=== PATIENT | female | born 1950 | race Caucasian/White ===

== ENCOUNTER 2018-08-31 12:06 | Emergency (ER) | payer MEDICARE, OTHER ==
[2018-08-31] MEDS ORDERED: Lidocaine 2% 5 ML SDV INFILT ONE (12:07)
[2018-08-31] MEDS ORDERED: Diphtheria,Pertussis(Acell),Tetanus Vaccine 0.5 ML SDV IM ONE (12:33)
--- NOTE | 2018-08-31 12:55 | EDM.PDOC ---
ED HPI GENERAL MEDICAL PROBLEM - General Chief Complaint: Laceration Stated Complaint: FINGER LACERATION LEFT HAND Time Seen by Provider: 08/31/18 12:06 Source of Information: Reports: Patient, Family History Limitations: Reports: No Limitations - History of Present Illness INITIAL COMMENTS - FREE TEXT/NARRATIVE: 67 y.o.w.f came with her to the ed shortly after cut her left finger while cutting in a potato with a ne knife. Wound was bleeding immediately. Pt noticed a piece of skin hanging off the finger tip. No N/V/D. Pt denied any other acute medical issues. BP 135/81 RR 20 Pulse ox 98% on RA temp 37.1 pulse 81 Onset Date: 08/31/18 Onset Time: 12:10 Duration: Minutes: Location: Reports: Upper Extremity, Left (left ring finger) Quality: Reports: Burning, Dull Severity: Mild Improves with: Reports: Rest Worsens with: Reports: Movement Context: Reports: Trauma Associated Symptoms: Reports: No Other Symptoms finger laceration Pain Score (Numeric/FACES): 5 - Related Data Allergies Allergy/AdvReac Type Severity Reaction Status Date / Time bupropion [From Wellbutrin] Allergy Intermediate Hives Verified 08/31/18 12:26 Sulfa (Sulfonamide Allergy Intermediate Hives Verified 08/31/18 12:26 Antibiotics) bacitracin Allergy Unknown Swelling Verified 08/31/18 12:26 [From Neosporin ([id number])] neomycin Allergy Unknown Swelling Verified 08/31/18 12:26 [From Neosporin ([id number])] polymyxin B Allergy Unknown Swelling Verified 08/31/18 12:26 [From Neosporin ([id number])] SEAFOOD Allergy UNKNOWN Uncoded 08/31/18 12:26 Home Meds: Home Meds Albuterol Sulfate [Ventolin Hfa] 8 gm IH Q4HR PRN 09/23/16 [History] Calcium Carb & Citrate/Vit D3 [Citracal + D ER] 1 each PO BID 09/23/16 [History] Citalopram Hydrobromide [Celexa] 20 mg PO DAILY 09/23/16 [History] Fluticasone/Salmeterol [Advair 250-50 Diskus] 1 each IH BID PRN 09/23/16 [ History] Lansoprazole [Prevacid] 30 mg PO BIDAC 09/23/16 [History] traZODone 50 mg PO BEDTIME 09/23/16 [History] Amoxicillin/Potassium Clav [Augmentin 875-125 Tablet] 1 each PO BID #20 tablet 08/31/18 [Rx] Simvastatin 80 mg PO DAILY 08/31/18 [History] Past Medical History Cardiovascular History: Reports: High Cholesterol Respiratory History: Reports: Asthma, Other (See Below) Other Respiratory History: SNORING Gastrointestinal History: Reports: Colon Polyp, GERD, Irritable Bowel Syndrome Musculoskeletal History: Reports: Arthritis, Other (See Below) Other Musculoskeletal History: TMJ SYNDROME, DYSTHYMIC DISORDER, SPINAL STENOSIS OF LUMBAR REGION Psychiatric History: Reports: Depression Dermatologic History: Reports: Other (See Below) Other Dermatologic History: SEBORRHEIC KERATOSIS, ACTINIC KERATOSIS, DERMATOCHALASIS - Past Surgical History HEENT Surgical History: Reports: Adenoidectomy, Eye Surgery, Tonsillectomy Social & Family History - Tobacco Use Smoking Status *Q: Never Smoker - Caffeine Use Caffeine Use: Reports: Coffee - Recreational Drug Use Recreational Drug Use: No ED ROS GENERAL - Review of Systems Review Of Systems: See Below Constitutional: Reports: No Symptoms HEENT: Reports: No Symptoms Respiratory: Reports: No Symptoms Cardiovascular: Reports: No Symptoms Endocrine: Reports: No Symptoms GI/Abdominal: Reports: No Symptoms : Reports: No Symptoms Musculoskeletal: Reports: No Symptoms Skin: Reports: Wound (left ring finger) Neurological: Reports: No Symptoms Psychiatric: Reports: No Symptoms Hematologic/Lymphatic: Reports: No Symptoms Immunologic: Reports: No Symptoms ED EXAM, SKIN/RASH Exam: See Below Exam Limited By: No Limitations General Appearance: Alert, WD/WN, Mild Distress Eye Exam: Bilateral Eye: Normal Inspection Ears: Normal External Exam Nose: Normal Inspection Throat/Mouth: Normal Inspection, Normal Lips, Normal Voice, No Airway Compromise Head: Atraumatic, Normocephalic Neck: Normal Inspection, Supple, Non-Tender, Full Range of Motion Respiratory/Chest: No Respiratory Distress, Lungs Clear, Normal Breath Sounds, No Accessory Muscle Use, Chest Non-Tender Cardiovascular: Normal Peripheral Pulses, Regular Rate, Rhythm, No Edema, No JVD , No Murmur, No Rub Peripheral Pulses: 1+: Brachial (R) GI/Abdominal: Normal Bowel Sounds, Soft, Non-Tender (Female) Exam: Deferred Rectal (Female) Exam: Deferred Back Exam: Normal Inspection, Full Range of Motion Extremities: Normal Inspection, Normal Range of Motion, Non-Tender, No Pedal Edema, Normal Capillary Refill Neurological: Alert, Oriented, CN II-XII Intact, Normal Cognition, Normal Gait, Normal Reflexes, No Motor/Sensory Deficits Psychiatric: Normal Affect, Normal Mood Skin: Warm, Dry, Wound/Incision (left ringfinger tip ) Location, Skin: Upper Extremity, Left (LAC finger tip of left ringfinger) Lymphatic: No Adenopathy ED SKIN PROCEDURES - Laceration/Wound Repair Left Distal Digit - 4th (Ring) Lac/Wound length In cm: 1.5 Appearance: Irregular, Clean Distal NVT: Neuro & Vascular Intact, No Tendon Injury Anesthetic Type: Digital Local Anesthesia - Lidocaine (Xylocaine): 2% Plain Local Anesthetic Volume: 3cc Skin Prep: Providone-Iodine (Betadine) Saline Irrigation (cc's): 4 Exploration/Debridement/Repair: Wound Explored, In a Bloodless Field, Explored to Base Suture Size: 4-0 # of Sutures: 4 Suture Type: Interrupted, Other (ethilon) Sterile Dressing Applied: Nurse Tetanus Status Addressed: Yes (given today) Complications: No Course - Vital Signs Text/Narrative:: 67 y.o.w.f came with her to the ed shortly after cut her left finger while cutting in a potato with a ne knife. Wound was bleeding immediately. Pt noticed a piece of skin hanging off the finger tip. No N/V/D. Pt denied any other acute medical issues. BP 135/81 RR 20 Pulse ox 98% on RA temp 37.1 pulse 81 PE: WNWD W F with a LAC at her left ring finger tip Procedure: Please see above Impression: Laceration of left 4th finger tip, repaired in the ED Tx: wound repair, TD. Rocephin. Note: Pt is allergic to Bactrim and neosporine ointment Reexam: Improved Plan: D/C with instructions Last Recorded V/S: Last Vital Signs Temp 37.2 C 08/31/18 12:55 Pulse 75 08/31/18 12:55 Resp 20 08/31/18 12:55 BP 135/81 08/31/18 12:55 Pulse Ox 100 08/31/18 12:55 - Orders/Labs/Meds Orders: Active Orders 24 hr Category Date Time Status Vaccines to be Administered [RC] PER UNIT ROUTINE Care 08/31/18 12:34 Active Meds: Medications Discontinued Medications Generic Name Dose Route Start Last Admin Trade Name Esther PRN Reason Stop Dose Admin Ceftriaxone Sodium 1 gm 08/31/18 12:59 08/31/18 13:05 Rocephin IM 08/31/18 13:00 1 gm ONETIME ONE Administration Diphtheria/Tetanus/Acell Pertussis 0.5 ml 08/31/18 12:33 08/31/18 12:55 Adacel IM 08/31/18 12:34 0.5 ml .ONCE ONE Administration Departure - Departure Time of Disposition: 12:56 Disposition: Home, Self-Care 01 Condition: Good Clinical Impression: Laceration - Discharge Information Prescriptions: Amoxicillin/Potassium Clav [Augmentin 875-125 Tablet] 1 each PO BID #20 tablet Instructions: Laceration Care, Adult Referrals: Mingo Quarles MD [Primary Care Provider] - Forms: ED Department Discharge Additional Instructions: Please keep the wound dry and clean, wound check in 2 days, please take the Abx as recommended, suture removal planned in 10 days, please come back to the ed if the symptoms change to the worse. - My Orders Last 24 Hours: My Active Orders 08/31/18 12:34 Vaccines to be Administered [RC] PER UNIT ROUTINE - Assessment/Plan Last 24 Hours: My Active Orders 08/31/18 12:34 Vaccines to be Administered [RC] PER UNIT ROUTINE
[2018-08-31] MEDS ORDERED: cefTRIAXone 1 GM Vial IM ONE (12:59)
[2018-08-31 13:41] VITALS: BP 135/81
== END 2018-08-31 13:20 | disposition home or self-care (01) ==
LOC: FB.ED 12:06
DX: S61.215A Laceration without foreign body of left ring finger without damage to nail, initial encounter (principal); Z23 Encounter for immunization; Z88.2 Allergy status to sulfonamides; Z91.013 Allergy to seafood; Z88.8 Allergy status to other drugs, medicaments and biological substances; Z79.899 Other long term (current) drug therapy; Z98.890 Other specified postprocedural states; W26.0XXA Contact with knife, initial encounter
CPT/HCPCS: 12001; 90471; 90715; 96372; 99282; 99283; J0696; J2001

== ENCOUNTER 2022-08-18 10:00 | Day surgery (SDC) | payer MEDICARE, OTHER ==
[2022-08-18] MEDS ORDERED: Sodium Chloride 0.9% 10 ML Syringe FLUSH PRN (10:15)
[2022-08-18] MEDS ORDERED: Lactated Ringers 1,000 ML IV SCH (10:15)
[2022-08-18 11:06] VITALS: BP 144/77; PULSE 79
[2022-08-18] MEDS ORDERED: Propofol 200 MG/20 ML SDV IV ONE (14:47)
== END 2022-08-18 12:23 | disposition home or self-care (01) ==
LOC: FB.SDS 10:00
PROVIDERS: ATTEND Surgery
DX: K29.50 Unspecified chronic gastritis without bleeding (principal); K21.9 Gastro-esophageal reflux disease without esophagitis; F32.A Depression, unspecified; J45.909 Unspecified asthma, uncomplicated; M19.90 Unspecified osteoarthritis, unspecified site; G47.30 Sleep apnea, unspecified; E78.00 Pure hypercholesterolemia, unspecified; Z79.899 Other long term (current) drug therapy; Z88.2 Allergy status to sulfonamides; Z88.8 Allergy status to other drugs, medicaments and biological substances; Z88.1 Allergy status to other antibiotic agents; Z91.013 Allergy to seafood; Z90.49 Acquired absence of other specified parts of digestive tract; Z98.890 Other specified postprocedural states
CPT/HCPCS: 00731-QZ; 88305; 88342; J2704; J7120